=== PATIENT | male | born 1975 | race Caucasian/White ===

== ENCOUNTER 2016-07-30 20:04 | Emergency (ER) | payer OTHER ==
[~2016-07-30] VITALS: Ht 167.6 cm; Wt 80.0 kg
[2016-07-30 20:07] VITALS: Ht 167.6 cm; Wt 80.0 kg
--- NOTE | 2016-07-30 20:47 | DIAGNOSTIC IMAGING REPORT ---
RIGHT KNEE 3 VIEWS CLINICAL HISTORY: R knee injury - ultimate frisbee Right trauma. Pain. COMPARISON: None. DISCUSSION: The bones and joint spaces appear intact. There is no evidence of fracture, dislocation or bony disease. There is no evidence for soft tissue swelling. IMPRESSION: Negative study. Electronically signed by: Marcelo Mejia M.D. 07/30/2016 8:46 PM Dictated Date/Time: 07/30/2016 8:45 PM
--- NOTE | 2016-07-30 21:20 | EMERGENCY ROOM VISIT NOTE ---
History First contact with patient: 20:10 Chief Complaint: KNEEPAIN Stated Complaint: TIWSTED RIGHT KNEE, POPPING NOISE History of Present Illness The patient is a 41 year old male who presents to the Emergency Room with complaints of right knee pain. The patient reports that he was playing [employer] this evening. He planted his right foot, and attempted to move to the left when he felt a pop in the back of his knee. The patient has taken OTC medications and applied ice with reduction of his pain to a 4 out of 10. He denies any prior history of right knee injuries. He currently denies any pain extending into the calf or thigh. He denies any paresthesias or numbness of the right lower extremity. Review of Systems 10 system review was performed and was negative except for pertinent positives and negatives as indicated in history of present illness Past Medical/Surgical History Medical Problems: (1) Tinnitus Surgical Problems: (1) No history of previous surgery Family History FH: cancer FH: diabetes mellitus FH: heart disease FH: hypertension FH: kidney disease FH: seizures Social History Smoking Status: Never Smoker Alcohol Use: occasionally Marital Status: Housing Status: lives with family Occupation Status: employed Allergies Uncoded Allergies: CODEINE (Allergy, Unknown, 08/15/02) Physical Exam Vital Signs Date Time Temp Pulse Resp B/P (MAP) Pulse Ox O2 Delivery O2 Flow Rate FiO2 07/30/16 20:07 36.8 89 16 115/83 96 Room Air Physical Exam CONSTITUTIONAL: Healthy and well nourished. Alert and oriented X 3 with positive affect. Patient does not appear in any acute distress. HEENT: Normocephalic, atraumatic. Pupils equal, round and reactive. NECK: Full active range of motion without discomfort. MUSCULOSKELETAL: Examination of the right knee does not show any obvious edema, ecchymosis or erythema. The patient has minimal tenderness over the hamstrings. No popliteal masses. No focal tenderness through the medial or lateral joint lines. No peripatellar tenderness to palpation. No obvious joint effusion. The patient has full active and passive flexion and extension of the knee without discomfort. Right knee has a positive anterior draw with solid endpoint. Comparison with the contralateral knee does not show any ligamentous instability. Further examination of the right knee shows no collateral instability. No focal tenderness over the proximal fibula. No significant tenderness to the gastrocnemius. Pedal pulses are intact. INTEGUMENTARY: No rash or other significant dermatologic conditions noted. NEUROLOGIC: No focal neurologic deficits noted. Right foot and toes are sensory intact. Medical Decision & Procedures ER Provider Diagnostic Interpretation: My interpretation of right knee x-rays does not show any acute fractures, dislocation or joint effusion. Radiologist report is as follows: RIGHT KNEE 3 VIEWS CLINICAL HISTORY: R knee injury - ultimate frisbee Right trauma. Pain. COMPARISON: None. DISCUSSION: The bones and joint spaces appear intact. There is no evidence of fracture, dislocation or bony disease. There is no evidence for soft tissue swelling. IMPRESSION: Negative study. ED Course Patient history and physical exam were performed. Nurse's notes were reviewed. Vital signs were reviewed and were normal. The patient refused any analgesics on initial exam. X-rays of the right knee were normal. The patient does have a positive anterior draw with solid endpoint. A knee immobilizer and crutches were applied. The patient was encouraged to continue intermittently apply ice to the knee. Ibuprofen and Tylenol for baseline pain relief. Follow- up with Dr. Hess for further reevaluation and management. The patient was happy with plan of care, voiced understanding of all discharge instructions and denied any significant pain at the conclusion of my exam. Medical Decision Impression Primary Impression: Right knee injury Departure Information Patient Instructions My [facility] Problem Qualifiers Primary Impression: Right knee injury Encounter type: initial encounter Qualified Codes: S89.91XA - Unspecified injury of right lower leg, initial encounter
[2016-07-30 21:23] VITALS: BP 130/76; PULSE 80; TEMP 36.8; O2SAT 95
== END 2016-07-30 21:24 | disposition home or self-care (01) ==
LOC: C.EDB 20:05 → C.EDD 21:24
DX: S89.91XA Unspecified injury of right lower leg, initial encounter (principal); Z86.69 Personal history of other diseases of the nervous system and sense organs; Z82.0 Family history of epilepsy and other diseases of the nervous system; Z82.49 Family history of ischemic heart disease and other diseases of the circulatory system; Z83.3 Family history of diabetes mellitus; Z84.1 Family history of disorders of kidney and ureter; X50.9XXA Other and unspecified overexertion or strenuous movements or postures, initial encounter; Y93.74 Activity, frisbee